=== PATIENT | female | born 1935 | race Caucasian/White ===

== ENCOUNTER 2017-09-21 17:32 | Inpatient (IN) | payer MEDICARE, BC ==
[~2017-09-21] VITALS: Ht 152.4 cm; Wt 56.7 kg
[2017-09-21] MEDS ORDERED: ACETAMINOPHEN325 MG PO (22:05)
[2017-09-21] MEDS ORDERED: PROVENTIL/2.5 MG/3 M INH (22:07)
[2017-09-21] MEDS ORDERED: CLAFORAN IV (22:08)
[2017-09-21] MEDS ORDERED: LIPITOR20 MG PO (22:08)
[2017-09-21] MEDS ORDERED: [UNRECOGNIZED DRUG - OTHER] IV (22:08)
[2017-09-21] MEDS ORDERED: SODIUM CL 0.41000 ML IV (22:09)
[2017-09-21] MEDS ORDERED: SYNTHROID125 MCG PO (22:10)
[2017-09-21] MEDS ORDERED: PEPCID INJ20 MG/2 ML IV (22:10)
[2017-09-21] MEDS ORDERED: TOPROL XL25 MG PO (22:11)
[2017-09-21] MEDS ORDERED: MEPERIDINE HCL50 MG PO (22:11)
[2017-09-21] MEDS ORDERED: FLAGYL 500500 MG/100 IV (22:12)
[2017-09-21] MEDS ORDERED: DULERA 200 MCG8.8 GM INH (22:13)
[2017-09-21] MEDS ORDERED: NALOXONE HC0.4 MG/M2 IV (22:13)
[2017-09-21] MEDS ORDERED: ONDANSETRON4 MG/2 M3 IV (22:14)
[2017-09-21] MEDS ORDERED: PROTONIX I40 MG/VIAL IV (22:15)
[2017-09-21] MEDS ORDERED: SALINE FLUSH10 ML IV (22:16)
[2017-09-21] MEDS ORDERED: LIQUITEARS15 ML EACH EYE (22:16)
[2017-09-21] MEDS ORDERED: EFFEXOR75 MG PO (22:17)
[2017-09-22 00:44] VITALS: BP 144/69
[2017-09-22 01:00] VITALS: BP 144/69; BMI 24.4
[2017-09-22 01:05] LABS: BASOPHILS 0.4 % (0-2); EOSINOPHILS 3.8 % (0-7); HEMATOCRIT 30.5 % (36.0-48.0); HEMOGLOBIN 9.9 g/dL (12-16); IMMATURE GRANULOCYTES 0.1 % (0-5); LYMPHOCYTES 28.9 % (15-50); MCH 31.1 pg (26.0-34.0); MCHC 32.5 g/dL (31.0-37.0); MCV 95.9 fL (80.0-100.0); MONOCYTES 9.7 % (2-11); NEUTROPHILS 57.1 % (40-80); PLATELET COUNT 204 10x3/uL (130-400); RBC 3.18 10x6/uL (4.00-5.40); WBC 7.6 10x3/uL (4.8-10.8)
[2017-09-22 01:19] LABS: ALBUMIN 2.8 g/dL (3.4-5.0); ANION GAP 10.8 mmol/L (8-16); BILIRUBIN - TOTAL 0.4 mg/dL (0.2-1.3); CALCIUM 8.2 mg/dL (8.5-10.1); CARBON DIOXIDE 26.6 mmol/L (21.0-32.0); POTASSIUM - SERUM 3.4 mmol/L (3.5-5.1); PROTEIN - SERUM 5.4 g/dL (6.4-8.2)
[2017-09-22 04:00] VITALS: BP 154/75
[2017-09-22 05:29] LABS: BASOPHILS 0.2 % (0-2); EOSINOPHILS 4.3 % (0-7); HEMATOCRIT 29.4 % (36.0-48.0); HEMOGLOBIN 9.4 g/dL (12-16); LYMPHOCYTES 30.7 % (15-50); MCH 30.7 pg (26.0-34.0); MCV 96.1 fL (80.0-100.0); MEAN PLATELET VOLUME 10.2 fL (7.4-10.4); MONOCYTES 9.3 % (2-11); NEUTROPHILS 55.5 % (40-80); PLATELET COUNT 195 10x3/uL (130-400); RBC 3.06 10x6/uL (4.00-5.40); RDW 14.3 % (11.5-14.5); WBC 6.5 10x3/uL (4.8-10.8)
[2017-09-22 06:13] LABS: ALBUMIN 2.5 g/dL (3.4-5.0); ANION GAP 10.4 mmol/L (8-16); BILIRUBIN - TOTAL 0.36 mg/dL (0.2-1.3); CALCIUM 7.8 mg/dL (8.5-10.1); CARBON DIOXIDE 26.1 mmol/L (21.0-32.0); CREATININE - SERUM 0.9 mg/dL (0.6-1.3); POTASSIUM - SERUM 3.5 mmol/L (3.5-5.1)
[2017-09-22 08:39] VITALS: BP 157/82
[2017-09-22 09:17] LABS: APTT 27.2 SECONDS (22.8-39.4); PROTIME 12.8 SECONDS (11.6-15.0)
[2017-09-22 10:30] VITALS: Ht 152.4 cm; Wt 56.7 kg
[2017-09-22 13:12] VITALS: BP 149/80
[2017-09-22 18:56] LABS: HEMATOCRIT 31.1 % (36.0-48.0)
[2017-09-22 22:21] VITALS: BP 135/64
[2017-09-23 01:10] VITALS: BP 158/68
[2017-09-23 05:03] VITALS: BP 138/68
[2017-09-23 05:32] LABS: BASOPHILS 0.3 % (0-2); EOSINOPHILS 4.4 % (0-7); HEMATOCRIT 32.7 % (36.0-48.0); HEMOGLOBIN 10.4 g/dL (12-16); IMMATURE GRANULOCYTES 0.3 % (0-5); LYMPHOCYTES 30.1 % (15-50); MCH 30.9 pg (26.0-34.0); MCHC 31.8 g/dL (31.0-37.0); MEAN PLATELET VOLUME 9.9 fL (7.4-10.4); MONOCYTES 8.5 % (2-11); NEUTROPHILS 56.4 % (40-80); PLATELET COUNT 212 10x3/uL (130-400); RBC 3.37 10x6/uL (4.00-5.40); RDW 14.4 % (11.5-14.5); WBC 7.9 10x3/uL (4.8-10.8)
[2017-09-23 05:52] LABS: CARBON DIOXIDE 27.3 mmol/L (21.0-32.0); POTASSIUM - SERUM 3.3 mmol/L (3.5-5.1)
[2017-09-23 07:52] VITALS: BP 150/71
[2017-09-23 12:20] VITALS: BP 146/57
[2017-09-23 15:54] VITALS: BP 157/73
[2017-09-23 16:19] LABS: HEMOGLOBIN 9.9 g/dL (12-16)
[2017-09-23 20:31] VITALS: BP 170/76
[2017-09-24 05:42] LABS: BASOPHILS 0.3 % (0-2); EOSINOPHILS 4.8 % (0-7); HEMATOCRIT 30.6 % (36.0-48.0); HEMOGLOBIN 9.7 g/dL (12-16); IMMATURE GRANULOCYTES 0.2 % (0-5); LYMPHOCYTES 22.6 % (15-50); MCH 30.7 pg (26.0-34.0); MCHC 31.7 g/dL (31.0-37.0); MCV 96.8 fL (80.0-100.0); MEAN PLATELET VOLUME 9.9 fL (7.4-10.4); MONOCYTES 9.3 % (2-11); NEUTROPHILS 62.8 % (40-80); PLATELET COUNT 215 10x3/uL (130-400); RBC 3.16 10x6/uL (4.00-5.40); RDW 14.2 % (11.5-14.5); WBC 9.4 10x3/uL (4.8-10.8)
[2017-09-24 06:06] LABS: ALBUMIN 2.7 g/dL (3.4-5.0); BILIRUBIN - TOTAL 0.4 mg/dL (0.2-1.3); CALCIUM 8.1 mg/dL (8.5-10.1); CARBON DIOXIDE 28.6 mmol/L (21.0-32.0); CREATININE - SERUM 0.9 mg/dL (0.6-1.3); POTASSIUM - SERUM 3.6 mmol/L (3.5-5.1); PROTEIN - SERUM 5.4 g/dL (6.4-8.2)
[2017-09-24 06:20] VITALS: BP 149/68
[2017-09-24 12:49] VITALS: BP 170/78
[2017-09-24 15:55] VITALS: BP 189/94
[2017-09-24 20:46] VITALS: BP 171/73
[2017-09-25 01:30] VITALS: BP 151/74
[2017-09-25 04:49] VITALS: BP 118/73
[2017-09-25 06:24] LABS: BASOPHILS 0.2 % (0-2); EOSINOPHILS 2.6 % (0-7); HEMATOCRIT 30.6 % (36.0-48.0); HEMOGLOBIN 9.8 g/dL (12-16); IMMATURE GRANULOCYTES 0.2 % (0-5); LYMPHOCYTES 23.2 % (15-50); MCH 30.7 pg (26.0-34.0); MCV 95.9 fL (80.0-100.0); MONOCYTES 8.3 % (2-11); NEUTROPHILS 65.5 % (40-80); PLATELET COUNT 224 10x3/uL (130-400); RBC 3.19 10x6/uL (4.00-5.40); RDW 14.1 % (11.5-14.5); WBC 9.6 10x3/uL (4.8-10.8)
[2017-09-25 06:45] LABS: ALBUMIN 2.7 g/dL (3.4-5.0); ANION GAP 9.1 mmol/L (8-16); BILIRUBIN - TOTAL 0.3 mg/dL (0.2-1.3); CALCIUM 7.9 mg/dL (8.5-10.1); CARBON DIOXIDE 27.9 mmol/L (21.0-32.0); CREATININE - SERUM 0.9 mg/dL (0.6-1.3); PROTEIN - SERUM 5.4 g/dL (6.4-8.2)
[2017-09-25 08:25] VITALS: BP 153/75
[2017-09-25 10:34] LABS: MAGNESIUM - SERUM 1.5 mg/dL (1.8-2.4); PHOSPHOROUS 3.7 mg/dL (2.5-4.9)
[2017-09-25] MEDS ORDERED: NYSTATIN ORAL SU5 ML PO (11:39)
[2017-09-25] MEDS ORDERED: FLAGYL500 MG PO (11:40)
[2017-09-25] MEDS ORDERED: FLORAJEN3 CAPS460 MG PO (11:41)
[2017-09-25] MEDS ORDERED: PROTONIX40 MG PO (11:41)
[2017-09-25 12:38] VITALS: BP 152/87
== END 2017-09-25 15:17 | disposition home or self-care (01) | DRG 378 ==
LOC: D.M2 17:32 → D.MS 21:54
PROVIDERS: Family Medicine; Internal Medicine Gastroenterology
PROC: 0DD78ZX Extraction of Stomach, Pylorus, Via Natural or Artificial Opening Endoscopic, Diagnostic (ICD-10-PCS; principal; 2017-09-22 14:00)
DX: K92.1 Melena (principal); K57.92 Diverticulitis of intestine, part unspecified, without perforation or abscess without bleeding; D62 Acute posthemorrhagic anemia; B37.81 Candidal esophagitis; K55.9 Vascular disorder of intestine, unspecified; K29.70 Gastritis, unspecified, without bleeding; K44.9 Diaphragmatic hernia without obstruction or gangrene; E11.65 Type 2 diabetes mellitus with hyperglycemia; J44.9 Chronic obstructive pulmonary disease, unspecified; Z87.11 Personal history of peptic ulcer disease; I10 Essential (primary) hypertension

== ENCOUNTER 2019-04-22 08:14 | Inpatient (IN) | payer MEDICARE, BC ==
[~2019-04-22] VITALS: Ht 152.4 cm; Wt 54.0 kg
[~2019-04-22 08:14] MED LIST: ACETAMINOPHEN325 MG PO; CLAFORAN IV; DULERA 200 MCG8.8 GM INH; EFFEXOR75 MG PO; FLAGYL 500500 MG/100 IV; FLAGYL500 MG PO; FLORAJEN3 CAPS460 MG PO; LIPITOR20 MG PO; LIQUITEARS15 ML EACH EYE; MEPERIDINE HCL50 MG PO; NALOXONE HC0.4 MG/M2 IV; NYSTATIN ORAL SU5 ML PO; ONDANSETRON4 MG/2 M3 IV; PEPCID INJ20 MG/2 ML IV; PROTONIX I40 MG/VIAL IV; PROTONIX40 MG PO; PROVENTIL/2.5 MG/3 M INH; SALINE FLUSH10 ML IV; SODIUM CL 0.41000 ML IV; SYNTHROID125 MCG PO; TOPROL XL25 MG PO; [UNRECOGNIZED DRUG - OTHER] IV
[2019-04-22] MEDS ORDERED: ESTRACE 0.5 MG0.5 MG PO (08:21)
[2019-04-22] MEDS ORDERED: CITRACAL + D E1 EACH PO (08:22)
[2019-04-22 08:49] LABS: BASOPHILS 0.2 % (0-2); EOSINOPHILS 1.7 % (0-7); HEMATOCRIT 39.6 % (36.0-48.0); HEMOGLOBIN 13.4 g/dL (12-16); IMMATURE GRANULOCYTES 0.3 % (0-5); LYMPHOCYTES 22.3 % (15-50); MCH 29.9 pg (26.0-34.0); MCHC 33.8 g/dL (31.0-37.0); MCV 88.4 fL (80.0-100.0); MONOCYTES 14.1 % (2-11); NEUTROPHILS 61.4 % (40-80); PLATELET COUNT 196 10x3/uL (130-400); RBC 4.48 10x6/uL (4.00-5.40); RDW 14.3 % (11.5-14.5); WBC 6.5 10x3/uL (4.8-10.8)
[2019-04-22 09:09] LABS: APTT 31.7 SECONDS (22.8-39.4); INR 1.05 (0.85-1.17); PROTIME 13.2 SECONDS (11.6-15.0)
[2019-04-22 09:26] VITALS: BP 120/62
[2019-04-22 09:50] LABS: APPEARANCE CLEAR (CLEAR); BILIRUBIN NEGATIVE (NEGATIVE); COLOR YELLOW (YELLOW); GLUCOSE NEGATIVE (NEGATIVE); KETONE SMALL mg/dL (NEGATIVE); NITRITE NEGATIVE (NEGATIVE); PROTEIN NEGATIVE (NEGATIVE); UROBILINOGEN NORMAL (NORMAL)
[2019-04-22 09:56] LABS: CALC OSMOLALITY 245 mosm/kg (275-300); CALCIUM 8.2 mg/dL (8.5-10.1); CARBON DIOXIDE 23.2 mmol/L (21.0-32.0); CHLORIDE - SERUM 87 mmol/L (98-107); CREATININE - SERUM 0.9 mg/dL (0.6-1.3); SODIUM 123 mmol/L (136-145); UREA NITROGEN 12 mg/dL (7-18); eGFR NON AFRICAN AMERICAN 63 mL/min (90-120)
[2019-04-22 09:58] LABS: GLUCOSE 64 mg/dL (74-106)
[2019-04-22 10:13] LABS: ALBUMIN 2.9 g/dL (3.4-5.0); ALKALINE PHOSPHATASE 95 U/L (46-116); ALT (SGPT) 26 U/L (10-68); BILIRUBIN - TOTAL 0.59 mg/dL (0.2-1.3); CKMB 0.1 U/L (0.0-3.6); CREATINE KINASE 40 UL (21-215); PROTEIN - SERUM 7.5 g/dL (6.4-8.2); TROPONIN-I 0.019 ng/mL (0.000-0.060)
[2019-04-22 11:09] VITALS: BP 121/65
[2019-04-22 15:51] VITALS: BP 164/87
[2019-04-22 19:05] VITALS: BP 168/52; BMI 23.4
[2019-04-22 19:53] VITALS: BP 148/70
[2019-04-23] VITALS: BP 158/79
[2019-04-23 04:00] VITALS: BP 160/79
--- NOTE | 2019-04-23 05:45 | NUR ---
FSBS 46 - PT ALERT & TALKING. GAVE 25 MG D50 IV PUSH. PT SITTING UP IN BED EATING A IGOR CRACKER AND MILK. ORDERED STAT GLUCOSE. LAB TO DRAW.
[2019-04-23 06:50] LABS: CALC OSMOLALITY 267 mosm/kg (275-300); CALCIUM 7.6 mg/dL (8.5-10.1); CHLORIDE - SERUM 100 mmol/L (98-107); CREATININE - SERUM 0.7 mg/dL (0.6-1.3); GLUCOSE 134 mg/dL (74-106); POTASSIUM - SERUM 3.1 mmol/L (3.5-5.1); SODIUM 134 mmol/L (136-145); eGFR NON AFRICAN AMERICAN 84 mL/min (90-120)
[2019-04-23 06:51] LABS: UREA NITROGEN 7 mg/dL (7-18)
--- NOTE | 2019-04-23 06:51 | NUR ---
RECHECK FSBS 107. REMINDED PT TO EAT BREAKFAST WHEN IT ARRIVES. WILL CONTINUE TO MONITOR.
[2019-04-23 06:55] LABS: ALBUMIN 2.6 g/dL (3.4-5.0); ALKALINE PHOSPHATASE 84 U/L (46-116); ALT (SGPT) 23 U/L (10-68); BILIRUBIN - TOTAL 0.42 mg/dL (0.2-1.3); PROTEIN - SERUM 6.9 g/dL (6.4-8.2)
--- NOTE | 2019-04-23 08:00 | NUR ---
PATIENT IN BED WITH IV INTACT. NO COMPLAINTS OR SIGNS OF DISTRESS. ASSISTED PATIENT TO BR AND BACK TO BED. CALL LIGHT WITHIN REACH. BSCDS ON. BED ALARM ON.
[2019-04-23 08:12] VITALS: BP 150/84
--- NOTE | 2019-04-23 11:45 | NUR ---
PATIENT BS 70. NOTIFIED DR. POOLE.
[2019-04-23 13:33] VITALS: BP 154/76
--- NOTE | 2019-04-23 14:50 | NUR ---
PATIENT IN BED WITH EYES CLOSED RESTING QUIETLY. CALL LIGHT WITHIN REACH.
[2019-04-23 16:05] LABS: BASOPHILS 0.2 % (0-2); EOSINOPHILS 2.3 % (0-7); HEMATOCRIT 41.3 % (36.0-48.0); LYMPHOCYTES 21.5 % (15-50); MCH 29.3 pg (26.0-34.0); MCHC 31.5 g/dL (31.0-37.0); MEAN PLATELET VOLUME 12.6 fL (7.4-10.4); MONOCYTES 10.2 % (2-11); NEUTROPHILS 65.8 % (40-80); RBC 4.44 10x6/uL (4.00-5.40); RDW 14.6 % (11.5-14.5)
[2019-04-23 16:06] LABS: PLATELET COUNT 119 10x3/uL (130-400); WBC 4.4 10x3/uL (4.8-10.8)
[2019-04-23 16:23] VITALS: BP 168/91
--- NOTE | 2019-04-23 17:00 | NUR ---
PATIENT BS 66. PATIENT EATING DINNER. DEXTROSE IV GIVEN. LAB ORDERED TO DRAW GLUCOSE AND K+. PATIENT HAS NO COMPLAINTS. STATED FEELS OK. IV INTACT. CALL LIGHT WITHIN REACH.
--- NOTE | 2019-04-23 18:20 | NUR ---
PATIENT IN BED WITH IV INTACT. NO COMPLAINTS OR SIGNS OF DISTRESS. BSCDS ON AND WORKING. CALL LIGHT WITHIN REACH.
[2019-04-23 18:50] LABS: POTASSIUM - SERUM 3.1 mmol/L (3.5-5.1)
[2019-04-23 19:49] VITALS: BP 164/84
[2019-04-24 00:30] VITALS: BP 138/70; BP 150/83
[2019-04-24 04:30] VITALS: BP 179/97
[2019-04-24 06:14] LABS: BASOPHILS 0.2 % (0-2); EOSINOPHILS 3.1 % (0-7); HEMOGLOBIN 11.4 g/dL (12-16); IMMATURE GRANULOCYTES 0.2 % (0-5); LYMPHOCYTES 21.3 % (15-50); MCH 28.9 pg (26.0-34.0); MCHC 31.7 g/dL (31.0-37.0); MCV 91.1 fL (80.0-100.0); MEAN PLATELET VOLUME 11.9 fL (7.4-10.4); MONOCYTES 16.7 % (2-11); NEUTROPHILS 58.5 % (40-80); PLATELET COUNT 104 10x3/uL (130-400); RBC 3.95 10x6/uL (4.00-5.40); RDW 14.5 % (11.5-14.5); WBC 4.5 10x3/uL (4.8-10.8)
--- NOTE | 2019-04-24 06:30 | NUR ---
LAB GLUCOSE 69. GAVE PT JELLO AND RECHECKED FSBS WAS 98. NO OTHER NEEDS. WILL CONTINUE TO MONITOR.
[2019-04-24 06:52] LABS: ALBUMIN 2.5 g/dL (3.4-5.0); ALKALINE PHOSPHATASE 72 U/L (46-116); ALT (SGPT) 19 U/L (10-68); CALCIUM 7.4 mg/dL (8.5-10.1); CARBON DIOXIDE 20.4 mmol/L (21.0-32.0); CHLORIDE - SERUM 105 mmol/L (98-107); CREATININE - SERUM 0.6 mg/dL (0.6-1.3); PROTEIN - SERUM 6.3 g/dL (6.4-8.2); SODIUM 136 mmol/L (136-145); eGFR NON AFRICAN AMERICAN > 90 mL/min (90-120)
[2019-04-24 07:06] LABS: CALC OSMOLALITY 266 mosm/kg (275-300); POTASSIUM - SERUM 3.6 mmol/L (3.5-5.1); UREA NITROGEN 4 mg/dL (7-18)
[2019-04-24 07:07] LABS: GLUCOSE 69 mg/dL (74-106)
[2019-04-24 08:09] VITALS: BP 167/90
--- NOTE | 2019-04-24 08:15 | NUR ---
PATIENT SITTING UP IN BED EATING AT THIS TIME. IV INTACT. NO COMPLAINTS. CALL LIGHT WITHIN REACH.
--- NOTE | 2019-04-24 11:38 | NUR ---
PATIENT AMBULATED WITH PT 24 FEET AND SAT UP IN CHAIR FOR 45 MINUTES.
[2019-04-24 12:28] VITALS: BP 166/82
[2019-04-24 16:54] VITALS: BP 168/90
--- NOTE | 2019-04-24 18:46 | NUR ---
PATIENT IN BED WITH IV INTACT. NO COMPLAINTS OR SIGNS OF DISTRESS. BA ON ON. CALL LIGHT WITHIN REACH. BSCDS ON AND WORKING.
[2019-04-24 19:30] VITALS: BP 144/84
--- NOTE | 2019-04-24 20:35 | NUR ---
LYING QUIELTY WITH NO COMPLAINTS VOICED. NO DISTRESS NOTED. RESP UNLAOBRED. CL IN REACH
[2019-04-25 00:30] VITALS: BP 128/71
[2019-04-25 04:00] VITALS: BP 150/80
--- NOTE | 2019-04-25 04:43 | NUR ---
I have reviewed this patient and I concur with the Shift Assessment completed by the Licensed Practical Nurse today this shift.
[2019-04-25 06:29] LABS: BASOPHILS 0.2 % (0-2); EOSINOPHILS 3.9 % (0-7); HEMATOCRIT 35.5 % (36.0-48.0); HEMOGLOBIN 11.4 g/dL (12-16); IMMATURE GRANULOCYTES 0.2 % (0-5); LYMPHOCYTES 20.1 % (15-50); MCH 29.1 pg (26.0-34.0); MCHC 32.1 g/dL (31.0-37.0); MCV 90.6 fL (80.0-100.0); MEAN PLATELET VOLUME 11.4 fL (7.4-10.4); MONOCYTES 15.1 % (2-11); NEUTROPHILS 60.5 % (40-80); RBC 3.92 10x6/uL (4.00-5.40); RDW 14.5 % (11.5-14.5); WBC 4.6 10x3/uL (4.8-10.8)
[2019-04-25 06:45] LABS: PLATELET COUNT 141 10x3/uL (130-400)
[2019-04-25 06:58] LABS: ALBUMIN 2.2 g/dL (3.4-5.0); ALKALINE PHOSPHATASE 65 U/L (46-116); ALT (SGPT) 16 U/L (10-68); CALC OSMOLALITY 267 mosm/kg (275-300); CALCIUM 7.2 mg/dL (8.5-10.1); CARBON DIOXIDE 22.6 mmol/L (21.0-32.0); CHLORIDE - SERUM 106 mmol/L (98-107); CREATININE - SERUM 0.6 mg/dL (0.6-1.3); GLUCOSE 85 mg/dL (74-106); PROTEIN - SERUM 5.8 g/dL (6.4-8.2); SODIUM 136 mmol/L (136-145); UREA NITROGEN 5 mg/dL (7-18); eGFR NON AFRICAN AMERICAN > 90 mL/min (90-120)
[2019-04-25 07:02] LABS: POTASSIUM - SERUM 2.8 mmol/L (3.5-5.1)
[2019-04-25 08:51] VITALS: BP 101/67
--- NOTE | 2019-04-25 09:00 | NUR ---
ASSESSMENT PER FLOW SHEET. PT IS WITHOUT DISTRESS.MONITOR.FALL PREVENTION IN PLACE.
[2019-04-25 12:30] VITALS: BP 140/83
[2019-04-25 16:21] VITALS: BP 171/97
--- NOTE | 2019-04-25 17:06 | NUR ---
OT NOTE: PT COMPLETED ADL MOB WITH MIN A. PT COMPLETED HYGIENE AND GROOMING TASK WITH MIN A. THANK YOU, AZALIA MORALES
--- NOTE | 2019-04-25 18:35 | NUR ---
REMAINS WITHOUT NEEDS,WITHOUT CHANGE.CONT PLAN OF CARE
[2019-04-25 19:30] VITALS: BP 165/94
--- NOTE | 2019-04-25 20:30 | NUR ---
A&O X 4, NO S/SX OF DISTRESS NOTED. 1L O2 VIA NC IN USE. REPORTS HEADACHE 01/29. CONTINUE PLAN OF CARE.
[2019-04-26] VITALS (7 sets, daily range): BP systolic 127–176; BP diastolic 69–100
--- NOTE | 2019-04-26 03:37 | NUR ---
I have reviewed this patient and I concur with the Shift Assessment completed by the Licensed Practical Nurse today this shift.
[2019-04-26 08:10] LABS: ALBUMIN 2.4 g/dL (3.4-5.0); ALKALINE PHOSPHATASE 65 U/L (46-116); ALT (SGPT) 18 U/L (10-68); BILIRUBIN - TOTAL 0.68 mg/dL (0.2-1.3); CALC OSMOLALITY 270 mosm/kg (275-300); CALCIUM 7.9 mg/dL (8.5-10.1); CHLORIDE - SERUM 107 mmol/L (98-107); CREATININE - SERUM 0.7 mg/dL (0.6-1.3); POTASSIUM - SERUM 3.1 mmol/L (3.5-5.1); PROTEIN - SERUM 6.7 g/dL (6.4-8.2); SODIUM 138 mmol/L (136-145); UREA NITROGEN 5 mg/dL (7-18); eGFR NON AFRICAN AMERICAN 84 mL/min (90-120)
[2019-04-26 08:11] LABS: GLUCOSE 69 mg/dL (74-106)
[2019-04-26 08:13] LABS: BASOPHILS 0.3 % (0-2); EOSINOPHILS 5.4 % (0-7); HEMATOCRIT 33.5 % (36.0-48.0); HEMOGLOBIN 10.7 g/dL (12-16); IMMATURE GRANULOCYTES 0.3 % (0-5); LYMPHOCYTES 24.7 % (15-50); MCH 28.8 pg (26.0-34.0); MCHC 31.9 g/dL (31.0-37.0); MCV 90.3 fL (80.0-100.0); MEAN PLATELET VOLUME 10.8 fL (7.4-10.4); MONOCYTES 13.8 % (2-11); NEUTROPHILS 55.5 % (40-80); PLATELET COUNT 125 10x3/uL (130-400); RBC 3.71 10x6/uL (4.00-5.40); RDW 14.6 % (11.5-14.5); WBC 3.7 10x3/uL (4.8-10.8)
--- NOTE | 2019-04-26 09:00 | NUR ---
ASSESSMENT PER FLOW SHEET. PT IS WITHOUT DISTRESS.MONITOR FOR NEEDS.
--- NOTE | 2019-04-26 12:08 | NUR ---
OT NOTE: PT PERFORMED WELL TODAY. IN ROOM AMBULATION WITH WALKER AND MIN ASSIST ( ALSO ASSIST WITH IV AND 02).. AMB TO TOILET WITH MIN ASSIST; TOILET HYGIENE AND CLOTHING MGMT WITH MIN ASSIST. AMB INTO HALLWAY FOR FUNCTIONAL ENDURANCE..ABLE TO AMB APPROX 78 FT.. PT VERY FATIGUED UPON RETURN TO ROOM. UE/LE EXS WHILE ON EOB. PT DOING BETTER TODAY. AYDE IBANEZ, OTR/L
--- NOTE | 2019-04-26 14:16 | MORECARE ---
CASE MANAGEMENT DISCHARGE SUMMARY PATIENT: SHAYNE GARCIA UNIT: [id number] ADM DATE: 04/22/19 AGE: 83 : 34 SEX: F ROOM/BED: D.2224 AUTHOR: CELINE ALMARAZ PHYSICIAN: REFERRING PHYSICIAN: SUSIE POOLE DO DATE OF SERVICE: 04/26/19 Discharge Plan Patient Name: SHAYNE GARCIA [facility] [facility] 1935 Planned Disposition: Home Anticipated Discharge Date: Discharge Date: Expected LOS: Initial Reviewer: [email or web address] Initial Review Date: 04/26/2019 Generated: 04/26/19 3:15 pm DCPIA - Discharge Planning Initial Assessment Updated by [email or web address]: Melinda Franklin on 04/26/19 2:14 pm * Is the patient Alert and Oriented? Yes * How many steps to enter\exit or inside your home? 2/0 * PCP Dr Javier Horton * Pharmacy [facility] * Preadmission Environment Home with Family * ADLs Partial Dependent * Partial ADLs (Assistance needed) Ambulation Medication Management * Equipment Cane Elevated [place] Seat Grab Bars Nebulizer Oxygen Shower Chair Walker * List name and contact numbers for known caregivers / representatives who currently or will assist patient after discharge: Juan Garcia - spouse - [phone] * Verbal permission to speak to the caregivers and representatives has been obtained from the patient. Yes * Community resources currently utilized Other * Please name any agencies selected above. OP PT at [facility] * Additional services required to return to the preadmission environment? No * Can the patient safely return to the preadmission environment? Yes * Has this patient been hospitalized within the prior 30 days at any hospital? No Patient Name: SHAYNE GARCIA Page [id number] at 1416 All edits/amendments must be made on the electronic document DICTATION DATE: 04/26/191414 MOP HANDLE ASSEMBLER: JANETTE 04/26/19 141 RPT#: [id number] DC DATE: STATUS: ADM IN [facility] [address] [place] [address] END OF REPORT
--- NOTE | 2019-04-26 14:24 | MORECARE ---
CASE MANAGEMENT DISCHARGE SUMMARY PATIENT: SHAYNE GARCIA UNIT: [id number] ADM DATE: 04/22/19 AGE: 83 : 34 SEX: F ROOM/BED: D.2224 AUTHOR: SUNG,DOC PHYSICIAN: REFERRING PHYSICIAN: SUSIE POOLE DO DATE OF SERVICE: 04/26/19 Discharge Plan Patient Name: SHAYNE GARCIA Facility: [facility]:[place] : 1935 Planned Disposition: Home Anticipated Discharge Date: Discharge Date: Expected LOS: Initial Reviewer: [email or web address] Initial Review Date: 04/26/2019 Generated: 04/26/19 3:24 pm Comments DCP- Discharge Planning Updated by [email or web address]: Melinda Franklin on 04/26/19 1:[address] Patient Name: SHAYNE GARCIA Admission Status: ER Accout number: [id number] Admission Date: 04-22-2019 : 1935 Admission Diagnosis:HYPO-OSMOLALITY AND HYPONATREMIA Attending: SUSIE POOLE Current LOS: 4 Anticipated DC Date: Planned Disposition: Home Primary Insurance: MEDICARE A & B Discharge Planning Comments: CM met with patient to complete initial dc planning assessment. CM educated patient on the CM role and verbal consent given by patient to complete assessment. Patient lives at home with her . At discharge patient plans to return and feels this is a safe discharge. CM discussed availability of home health, rehab services, and medical equipment. Patient denied known discharge needs at this time. I informed the doctor has ordered a rehab screen for inpatient rehab and she states she does not want to go to rehab. She states "I feel like if I just go back to physical therapy at [facility] 3 times a week, I'll keep my strength up." CM will continue to follow and will assist as needed with dc plans/needs. Furnace Charging Machine Operator: Melinda Franklin DCPIA - Discharge Planning Initial Assessment Updated by [email or web address]: Melinda Franklin on 04/26/19 2:14 pm * Is the patient Alert and Oriented? Yes * How many steps to enter\\exit or inside your home? 2/0 * PCP Dr Javier Horton * Pharmacy [facility] * Preadmission Environment Home with Family * ADLs Partial Dependent * Partial ADLs (Assistance needed) Ambulation Medication Management * Equipment Cane Elevated [place] Seat Grab Bars Nebulizer Oxygen Shower Chair Walker * List name and contact numbers for known caregivers / representatives who currently or will assist patient after discharge: Juan Garcia - spouse - [phone] * Verbal permission to speak to the caregivers and representatives has been obtained from the patient. Yes * Community resources currently utilized Other * Please name any agencies selected above. OP PT at [facility] in [place] * Additional services required to return to the preadmission environment? No * Can the patient safely return to the preadmission environment? Yes * Has this patient been hospitalized within the prior 30 days at any hospital? No Last DP export: 04/26/19 1:16 p Patient Name: SHAYNE GARCIA Page [phone] at 1424 All edits/amendments must be made on the electronic document DICTATION DATE: 04/26/191423 SUPERVISOR FINISHING DEPARTMENT: JANETTE 04/26/191423 RPT#: [id number] DC DATE: STATUS: ADM IN [facility] [address] [place] [address] END OF REPORT
--- NOTE | 2019-04-26 16:05 | NUR ---
Rehab Note- Acute Inpatient REhab prescreen order received. THe patient is a good inpatient rehab candidiate. Will accept the patient to [facility] Acute Inpatient REhab when medically stable and ready for discharge from the acute hospital. Will follow at this time. Thank you for this referral! Arielle Amezcua RN Clinical Liaison, [facility] Rehab
--- NOTE | 2019-04-26 16:37 | NUR ---
OT NOTE: PT COMPLETED ADL MOB WITH CGA. PT COMPLETED SIT TO STAND WITH MIN A/CGA. PT COMPLETED FACE WASH AND HAND WASH WITH SET UP. THANK YOU, AZALIA MORALES
--- NOTE | 2019-04-26 19:31 | NUR ---
REMAINS WITHOUT NEEDS.CONT PLAN OF CARE
--- NOTE | 2019-04-26 21:20 | NUR ---
ASSISTED UP TO BR TO VOID. INCONT AT TIMES. ADULT BRIEF IN USE. RESP NONLABORED. O2 @ 2L/NC. GAIT IS UNSTEADY. NS @ 50 MLHR INFUSING IN LT FOREARM. BRUISES NOTED TO BUE. NOT WEARING SCDS. TELEMETRY SHOWS SR WITH RATE OF 96. DENIES PAIN. ALERT AND ORIENTED X4. SR ELVATED X2. CL IN REACH. KYLIE ALARM IN USE FOR PT SAFETY.
--- NOTE | 2019-04-26 21:56 | NUR ---
MEDICATED FOR C/O H/A WITH TYLENOL ORDERED. CL IN REACH.
--- NOTE | 2019-04-26 23:55 | NUR ---
ASSISTED UP TO BR TO VOID AND BACK TO BED. KYLIE ALARM ON FOR PT SAFETY. CL IN REACH.
[2019-04-27 01:07] VITALS: BP 129/90
--- NOTE | 2019-04-27 03:51 | NUR ---
MEDICATED WITH TYLENOL FOR C/O H/A. CL IN REACH. NO DISTRESS.
[2019-04-27 05:09] VITALS: BP 150/80
--- NOTE | 2019-04-27 05:30 | NUR ---
FSBS 69. PT GIVEN GLUCOSE GEL PER HYPOGLYCEMIC PROTOCOL. ASYMPTOMATIC OTHERWISE.
--- NOTE | 2019-04-27 06:10 | NUR ---
FSBS RECHECKED AND WAS 95. NO DISTRESS.
[2019-04-27 06:45] LABS: ALBUMIN 2.3 g/dL (3.4-5.0); ALKALINE PHOSPHATASE 66 U/L (46-116); ALT (SGPT) 15 U/L (10-68); BILIRUBIN - TOTAL 0.44 mg/dL (0.2-1.3); CALC OSMOLALITY 265 mosm/kg (275-300); CALCIUM 7.9 mg/dL (8.5-10.1); CARBON DIOXIDE 20.8 mmol/L (21.0-32.0); CHLORIDE - SERUM 105 mmol/L (98-107); CREATININE - SERUM 0.6 mg/dL (0.6-1.3); GLUCOSE 84 mg/dL (74-106); POTASSIUM - SERUM 3.4 mmol/L (3.5-5.1); SODIUM 135 mmol/L (136-145); UREA NITROGEN 5 mg/dL (7-18); eGFR NON AFRICAN AMERICAN > 90 mL/min (90-120)
[2019-04-27 07:36] LABS: HEMATOCRIT 34.1 % (36.0-48.0); HEMOGLOBIN 10.9 g/dL (12-16); MCH 28.8 pg (26.0-34.0); MCV 90.2 fL (80.0-100.0); RBC 3.78 10x6/uL (4.00-5.40); RDW 14.6 % (11.5-14.5)
[2019-04-27 07:43] LABS: WBC 7.4 10x3/uL (4.8-10.8)
[2019-04-27 07:59] VITALS: BP 157/55
[2019-04-27 10:16] LABS: EOSINOPHILS 1 % (0-7); LYMPHOCYTES 9 % (15-50); MONOCYTES 7 % (2-11); NEUTROPHILS 83 % (40-80); PLATELET ESTIMATE NORMAL
[2019-04-27 10:22] LABS: MEAN PLATELET VOLUME 10.67 fL (7.4-10.4)
[2019-04-27 10:23] LABS: PLATELET COUNT 167.2 10x3/uL (130-400)
[2019-04-27 10:24] LABS: PLATELET MORPHOLOGY PLT CLUMPS PRESENT
[2019-04-27 10:52] VITALS: Ht 152.4 cm; Wt 54.0 kg
[2019-04-27 11:37] VITALS: BP 138/88
--- NOTE | 2019-04-27 12:43 | MORECARE ---
CASE MANAGEMENT DISCHARGE SUMMARY PATIENT: SHAYNE GARCIA UNIT: [id number] ADM DATE: 04/22/19 AGE: 83 : 34 SEX: F ROOM/BED: D.2224 AUTHOR: SUNG,DOC PHYSICIAN: REFERRING PHYSICIAN: SUSIE POOLE DO DATE OF SERVICE: 04/27/19 Discharge Plan Patient Name: SHAYNE GARCIA Facility: [facility]:[place] : 1935 Planned Disposition: Home Anticipated Discharge Date: Discharge Date: Expected LOS: Initial Reviewer: [email or web address] Initial Review Date: 04/26/2019 Generated: 04/27/19 1:42 pm Comments DCP- Discharge Planning Updated by [id number]: Melinda Pedrazalori on 04/27/19 11:[address] In agreement to inpatient rehab. She states she lives with her and feels safe to discharge home after rehab. She is having some "rectal bleeding" and would like it addressed before discharging to rehab. I informed Brooklyn Cates APN. Will discharge to inpatient rehab. DCP- Discharge Planning Updated by [email or web address]: Melinda Pedrazalori on 04/26/19 1:[address] Patient Name: SHAYNE GARCIA Admission Status: ER Accout number: [id number] Admission Date: 04-22-2019 : 1935 Admission Diagnosis:HYPO-OSMOLALITY AND HYPONATREMIA Attending: SUSIE POOLE Current LOS: 4 Anticipated DC Date: Planned Disposition: Home Primary Insurance: MEDICARE A & B Discharge Planning Comments: CM met with patient to complete initial dc planning assessment. CM educated patient on the CM role and verbal consent given by patient to complete assessment. Patient lives at home with her . At discharge patient plans to return and feels this is a safe discharge. CM discussed availability of home health, rehab services, and medical equipment. Patient denied known discharge needs at this time. I informed the doctor has ordered a rehab screen for inpatient rehab and she states she does not want to go to rehab. She states "I feel like if I just go back to physical therapy at [facility] 3 times a week, I'll keep my strength up." CM will continue to follow and will assist as needed with dc plans/needs. Picker And Packer: Melinda Franklin DCPIA - Discharge Planning Initial Assessment Updated by [email or web address]: Melinda Franklin on 04/26/19 2:14 pm * Is the patient Alert and Oriented? Yes * How many steps to enter\\exit or inside your home? 2/0 * PCP Dr Javier Horton * Pharmacy [facility] * Preadmission Environment Home with Family * ADLs Partial Dependent * Partial ADLs (Assistance needed) Ambulation Medication Management * Equipment Cane Elevated [place] Seat Grab Bars Nebulizer Oxygen Shower Chair Walker * List name and contact numbers for known caregivers / representatives who currently or will assist patient after discharge: Juan Garcia - [facility] - [phone] * Verbal permission to speak to the caregivers and representatives has been obtained from the patient. Yes * Community resources currently utilized Other * Please name any agencies selected above. OP PT at [facility] in [place] * Additional services required to return to the preadmission environment? No * Can the patient safely return to the preadmission environment? Yes * Has this patient been hospitalized within the prior 30 days at any hospital? No Coverage Notice Reviewer: [id number] - Melinda Franklin Notice Issued Date-Time: 04/27/2019 12:36 Notice Type: IM Discharge Notice Notice Delivered To: Patient Relationship to Patient: Self Patient Flow Coordinator Name: Delivery Method: HAND - Hand Delivered Bettie Days: Prior Verbal Notification: Recipient Understood Notice: Yes Recipient Signature: Yes Med Rec Note Co-signed by Attending: Coverage Notice Comment: IMM explained, signed, given, copy placed in MR Last DP export: 04/26/19 1:24 p Patient Name: SHAYNE GARCIA Page [phone] at 1243 All edits/amendments must be made on the electronic document DICTATION DATE: 04/27/19 1242 VACUUM FURNACE OPERATOR: JANETTE 04/27/19 1242 RPT#: [id number] DC DATE: STATUS: ADM IN [facility] [address] [place] [address] END OF REPORT
--- NOTE | 2019-04-27 14:11 | NUR ---
Rehab Note- Visited with the patient, she is willing to come to [facility] Acute Inpatient Rehab but she has concern and wants it addressed the grossly bloody stools that she has had that started this AM, stating that she has had 3 of them today. Spoke with DEIDRE Lawrence and informed her of the patient's concerns. WIll continue to follow at this time. THank you for this referral! Arielle Amezcua RN Clinical Liaison, [facility] Rehab
[2019-04-27 17:01] VITALS: BP 175/98
[2019-04-27 18:40] LABS: HEMATOCRIT 36.5 % (36.0-48.0); HEMOGLOBIN 11.8 g/dL (12-16)
[2019-04-27 21:00] VITALS: BP 176/99
--- NOTE | 2019-04-27 21:30 | NUR ---
Patient is alert and orented able to voice needs and wants to staff. O2 at 2l via n/c, IV to left FA, with no redness noted or pain reported. with N/S at 50ml/hr.FAll precfaution in place. SCD's on
[2019-04-27 23:18] LABS: APPEARANCE CLEAR (CLEAR); COLOR YELLOW (YELLOW)
[2019-04-27 23:19] LABS: BILIRUBIN NEGATIVE (NEGATIVE); GLUCOSE NEGATIVE (NEGATIVE); KETONE NEGATIVE (NEGATIVE); NITRITE NEGATIVE (NEGATIVE); PROTEIN NEGATIVE (NEGATIVE); SPECIFIC GRAVITY 1.005 (1.005-1.020); UROBILINOGEN NORMAL (NORMAL)
[2019-04-28 04:00] VITALS: BP 140/85
[2019-04-28 06:53] LABS: BASOPHILS 0.1 % (0-2); EOSINOPHILS 2.3 % (0-7); HEMATOCRIT 34.9 % (36.0-48.0); HEMOGLOBIN 11.3 g/dL (12-16); IMMATURE GRANULOCYTES 0.3 % (0-5); LYMPHOCYTES 15.7 % (15-50); MCH 28.9 pg (26.0-34.0); MCHC 32.4 g/dL (31.0-37.0); MCV 89.3 fL (80.0-100.0); MEAN PLATELET VOLUME 11.1 fL (7.4-10.4); MONOCYTES 8.3 % (2-11); NEUTROPHILS 73.3 % (40-80); PLATELET COUNT 145 10x3/uL (130-400); RBC 3.91 10x6/uL (4.00-5.40); RDW 14.7 % (11.5-14.5)
--- NOTE | 2019-04-28 07:25 | NUR ---
IV OUT RESITED 22 TO LEFT AC WITH ATEMPT X2 .
[2019-04-28 07:27] LABS: ALBUMIN 2.3 g/dL (3.4-5.0); ALKALINE PHOSPHATASE 73 U/L (46-116); BILIRUBIN - TOTAL 0.47 mg/dL (0.2-1.3); CALC OSMOLALITY 262 mosm/kg (275-300); CALCIUM 8.4 mg/dL (8.5-10.1); CARBON DIOXIDE 24.4 mmol/L (21.0-32.0); CHLORIDE - SERUM 101 mmol/L (98-107); CREATININE - SERUM 0.7 mg/dL (0.6-1.3); GLUCOSE 91 mg/dL (74-106); POTASSIUM - SERUM 3.6 mmol/L (3.5-5.1); PROTEIN - SERUM 6.8 g/dL (6.4-8.2); SODIUM 133 mmol/L (136-145); UREA NITROGEN 5 mg/dL (7-18); eGFR NON AFRICAN AMERICAN 84 mL/min (90-120)
[2019-04-28 07:33] LABS: ALT (SGPT) 21 U/L (10-68)
--- NOTE | 2019-04-28 08:00 | NUR ---
PATIENT IN BED WITH IV INTACT. NO COMPLAINTS OR SIGNS OF DISTRESS. BSCDS OFF. STATED SHE WANTS TO LEAVE THEM OFF FOR AWHILE. CALL LIGHT WITHIN REACH. BA ON.
--- NOTE | 2019-04-28 08:00 | NUR ---
PATIENT IN BED WITH IV INTACT. NO COMPLAINTS OR SIGNS OF DISTRESS. CALL LIGHT WITHIN REACH.
[2019-04-28 09:22] VITALS: BP 150/96
--- NOTE | 2019-04-28 10:00 | NUR ---
PATIENT SITTING UP IN CHAIR. SALINE LOCKED AT THIS TIME PER ROBERTO. NO COMPLAINTS OR SIGNS OF DISTRESS.
--- NOTE | 2019-04-28 11:55 | NUR ---
PATIENT IN BED WITH IV INTACT. EYES CLOSED RESTING QUIETLY. BSCDS ON AND WORKING. CALL LIGHT WITHIN REACH.
--- NOTE | 2019-04-28 12:00 | NUR ---
PATIENT SITTING UP ON THE SIDE OF THE BED WITH IV INTACT. EATING LUNCH AT THIS TIME. CALL LIGHT WITHIN REACH.
[2019-04-28 12:28] VITALS: BP 144/85
--- NOTE | 2019-04-28 14:07 | NUR ---
HAS HAD THE FLU SHOT FOR THIS YR
--- NOTE | 2019-04-28 15:28 | NUR ---
OT NOTE: PT COMPLETED FACE/HAND HYGIENE WITH SET UP. PT COMPLETED BED MOB AND EOB SITTING WITH SBA. THANK YOU, AZALIA MORALES
--- NOTE | 2019-04-29 08:32 | MORECARE ---
CASE MANAGEMENT DISCHARGE SUMMARY PATIENT: SHAYNE GARCIA UNIT: [id number] ADM DATE: 04/22/19 AGE: 83 : 34 SEX: F ROOM/BED: D.2224 AUTHOR: SUNG,DOC PHYSICIAN: REFERRING PHYSICIAN: SUSIE POOLE DO DATE OF SERVICE: 04/29/19 Discharge Plan Patient Name: SHAYNE GARCIA Facility: [facility]:[place] : 1935 Planned Disposition: Inpatient Rehab Anticipated Discharge Date: Discharge Date: 04/28/2019 Expected LOS: 0 Initial Reviewer: [email or web address] Initial Review Date: 04/26/2019 Generated: 04/29/19 9:32 am Comments DCP- Discharge Planning Updated by [email or web address]: Melinda Noemi on 04/27/19 11:[address] In agreement to inpatient rehab. She states she lives with her and feels safe to discharge home after rehab. She is having some "rectal bleeding" and would like it addressed before discharging to rehab. I informed Brooklyn Cates APN. Will discharge to inpatient rehab. DCP- Discharge Planning Updated by [id number]: Melinda Noemi on 04/26/19 1:[address] Patient Name: SHAYNE GARCIA Admission Status: ER Accout number: [id number] Admission Date: 04-22-2019 : 1935 Admission Diagnosis:HYPO-OSMOLALITY AND HYPONATREMIA Attending: SUSIE POOLE Current LOS: 4 Anticipated DC Date: Planned Disposition: Home Primary Insurance: MEDICARE A & B Discharge Planning Comments: CM met with patient to complete initial dc planning assessment. CM educated patient on the CM role and verbal consent given by patient to complete assessment. Patient lives at home with her . At discharge patient plans to return and feels this is a safe discharge. CM discussed availability of home health, rehab services, and medical equipment. Patient denied known discharge needs at this time. I informed the doctor has ordered a rehab screen for inpatient rehab and she states she does not want to go to rehab. She states "I feel like if I just go back to physical therapy at [facility] 3 times a week, I'll keep my strength up." CM will continue to follow and will assist as needed with dc plans/needs. Insole Cementer: Melinda Franklin DCPIA - Discharge Planning Initial Assessment Updated by [email or web address]: Melinda Franklin on 04/26/19 2:14 pm * Is the patient Alert and Oriented? Yes * How many steps to enter\\exit or inside your home? 2/0 * PCP Dr Javier Horton * Pharmacy [facility] * Preadmission Environment Home with Family * ADLs Partial Dependent * Partial ADLs (Assistance needed) Ambulation Medication Management * Equipment Cane Elevated [place] Seat Grab Bars Nebulizer Oxygen Shower Chair Walker * List name and contact numbers for known caregivers / representatives who currently or will assist patient after discharge: Juan Garcia - [facility] - [phone] * Verbal permission to speak to the caregivers and representatives has been obtained from the patient. Yes * Community resources currently utilized Other * Please name any agencies selected above. OP PT at [facility] in [place] * Additional services required to return to the preadmission environment? No * Can the patient safely return to the preadmission environment? Yes * Has this patient been hospitalized within the prior 30 days at any hospital? No Coverage Notice Reviewer: [id number] - Melinda Franklin Notice Issued Date-Time: 04/27/2019 12:36 Notice Type: IM Discharge Notice Notice Delivered To: Patient Relationship to Patient: Self Residential Air Sealing Technician Name: Delivery Method: HAND - Hand Delivered Bettie Days: Prior Verbal Notification: Recipient Understood Notice: Yes Recipient Signature: Yes Med Rec Note Co-signed by Attending: Coverage Notice Comment: IMM explained, signed, given, copy placed in MR Last DP export: 04/27/19 11:43 a Patient Name: SHAYNE GARCIA Page [id number] at 0832 All edits/amendments must be made on the electronic document DICTATION DATE: 04/29/19831 MOTORS ASSEMBLER: JANETTE 04/29/19831 RPT#: [id number] DC DATE:04/28/19 STATUS: DIS IN [facility] [address] [place] [address] END OF REPORT
== END 2019-04-28 15:15 | DRG 640 ==
LOC: D.ER 08:14 → D.MS 11:09
PROVIDERS: Family Medicine; Internal Medicine Nephrology; ADMIT Family Medicine; ATTEND Family Medicine
DX: E87.1 Hypo-osmolality and hyponatremia (principal); G93.41 Metabolic encephalopathy; J96.21 Acute and chronic respiratory failure with hypoxia; I10 Essential (primary) hypertension; J44.9 Chronic obstructive pulmonary disease, unspecified; M54.9 Dorsalgia, unspecified; M19.90 Unspecified osteoarthritis, unspecified site; M32.9 Systemic lupus erythematosus, unspecified; R55 Syncope and collapse; G72.9 Myopathy, unspecified; R53.1 Weakness; R11.0 Nausea; E86.0 Dehydration; E11.65 Type 2 diabetes mellitus with hyperglycemia; Z91.81 History of falling; I20.9 Angina pectoris, unspecified; R00.0 Tachycardia, unspecified; D69.6 Thrombocytopenia, unspecified

== ENCOUNTER 2019-04-28 14:32 | Inpatient (IN) | payer MEDICARE, BC ==
[~2019-04-28] VITALS: Ht 152.4 cm; Wt 54.0 kg
[~2019-04-28 14:32] MED LIST changes: +CITRACAL + D E1 EACH PO; +ESTRACE 0.5 MG0.5 MG PO
[2019-04-28 19:23] VITALS: BMI 23.2
[2019-04-28 20:00] VITALS: BP 143/81
--- NOTE | 2019-04-28 20:16 | NUR ---
AWAKE AND ALERT. RESTING IN BED. RESPIRATIONS UNLABORED. IN PROCESS OF ADMISSION ASSESSMENT PER DAY SHIFT NURSE. NO ACUTE DISTRESS NOTED. LEFT ARM SALINE LOCK IN PLACE. CALL LIGHT IN REACH.
[2019-04-28 21:12] VITALS: BP 143/81
--- NOTE | 2019-04-29 02:09 | NUR ---
SLEEPING IN BED WITH RESPIRATIONS ULABORED. NO DISTRESS NOTED. CALL LIGHT IN REACH.
--- NOTE | 2019-04-29 05:37 | NUR ---
QUIET HOURS. NO ACUTE CHANGES IN CONDITION THIS SHIFT. RESTING IN BED WITH NO DISTRESS NOTED. CALL LIGHT IN REACH.
[2019-04-29 08:00] VITALS: BP 127/76
--- NOTE | 2019-04-29 08:00 | NUR ---
PT RESTING IN BED WITH EYES OPEN CALL LIGHT IN REACH NO PROBLEMS WILL MONITER
[2019-04-29 14:11] VITALS: Ht 152.4 cm; Wt 54.0 kg
--- NOTE | 2019-04-29 16:30 | NUR ---
PATIENT ADMITTED TO REHAB FROM ACUTE FLOOR. DR. KATIE GRIMALDO IS PATIENT PCP, DME AT HOME IS CANE, NEBULIZER, O2, WALKER, SHOWER CHAIR. DISCHARGE PLANS ARE FOR PATIENT TO RETURN HOME WITH FAMILY. WILL CONTINUE TO FOLLOW WITH PATIENT
[2019-04-29 18:30] VITALS: BP 123/73
--- NOTE | 2019-04-29 19:10 | NUR ---
BEDSIDE REPORT COMPLETE. PT SITTING UP IN BED WATCHING TV. DENIES ANY NEEDS OR PAIN. RR EVEN AND UNLABORED. CONTINUES ON 2L VIA NC. VS STABLE. SHIFT ASSESSMENT COMPLETE. CL IN REACH. FALL PRECAUTIONS IN PLACE. WILL CONTINUE TO MONITOR
--- NOTE | 2019-04-30 00:53 | NUR ---
QUIET HOURS. PT LYING IN BED ON RIGHT SIDE EYES CLOSED RESTING QUIETLY. RR EVEN AND UNLABORED. CL IN REACH
--- NOTE | 2019-04-30 03:54 | NUR ---
PT LYING IN BED EYES CLOSED RESTING. RR EVEN AND UNLABORED. CL IN REACH
[2019-04-30 08:00] VITALS: BP 117/62
--- NOTE | 2019-04-30 08:04 | NUR ---
ALERT AND ORIENTED. EATING BREAKFAST. NO C/O PAIN RESP EVEN AND UNLABORED. CL IN REACH.
--- NOTE | 2019-04-30 11:18 | NUR ---
PARTICIPATING IN THERAPY AT THIS TIME. NO C/O PAIN.
--- NOTE | 2019-04-30 16:01 | NUR ---
REFUSED SHOWER. STATED HAD YESTERDAY. DID NOT WANT TODAY.
--- NOTE | 2019-04-30 16:03 | NUR ---
NO CHANGE IN ASSESSMENT. RESTING WO DISTRESS. CL IN REACH.
[2019-04-30 18:50] VITALS: BP 144/84
--- NOTE | 2019-04-30 18:50 | NUR ---
BEDSIDE REPORT COMPLETE. PT LYING IN BED WATCHING TV. DENIES ANY NEEDS OR PAIN. ALERT AND ORIENTED X4. NO SIGNS OF ACUTE DISTRESS NOTED. VS STABLE. SHIFT ASSESSMENT COMPLETE. CL IN REACH. FALL PRECAUTIONS IN PLACE. WILL CONTINUE TO MONITOR
--- NOTE | 2019-04-30 22:15 | NUR ---
ASSISTED PT TO RESTROOM AND BACK TO BED WITH SBA. NO SIGNS OF ACUTE DISTRESS NOTED. CL IN REACH
--- NOTE | 2019-05-01 01:28 | NUR ---
QUIET HOURS. PT LYING IN BED SUPINE EYES CLOSED RESTING QUIETLY. RR EVEN AND UNLABORED. CL IN REACH.
--- NOTE | 2019-05-01 04:39 | NUR ---
PT LYING IN BED EYES CLOSED RESTING QUIETLY. RR EVEN AND UNLABORED. CL IN REACH
--- NOTE | 2019-05-01 05:21 | NUR ---
ASSISTED PT TO RESTROOM AND BACK TO BED WITH SBA ASSIST. CL IN REACH
--- NOTE | 2019-05-01 07:11 | NUR ---
ALERT AND ORIENTED. NO DISTRESS NOTED. RESP EVEN AND UNLABORED. CL IN REACH.
[2019-05-01 09:19] VITALS: BP 102/52
--- NOTE | 2019-05-01 09:21 | NUR ---
SHOWER GIVEN PER NURSING.
--- NOTE | 2019-05-01 10:50 | NUR ---
RESTING IN BED AFTER SHOWER THIS AM. NO C/O PAIN AT THIS TIME. CL IN REACH.
--- NOTE | 2019-05-01 16:51 | NUR ---
NO CHANGE IN ASSESSMENT. SITTING IN WC WAITING FOR DINNER. NO C/O PAIN. CL IN REACH.
[2019-05-01 19:00] VITALS: BP 119/72
--- NOTE | 2019-05-01 19:00 | NUR ---
BEDSIDE REPORT COMPLETE. PT LYING IN BED WATCHING TV. DENIES ANY NEEDS OR PAIN. RR EVEN AND UNLABORED. VS STABLE. SHIFT ASSESSMENT COMPLETE. CL IN REACH. FALL PRECAUTIONS IN PLACE. WILL CONTINUE TO MONITOR
--- NOTE | 2019-05-01 23:43 | NUR ---
QUIET HOURS. PT LYING IN BED EYES CLOSED RESTING QUIETLY. RR EVEN AND UNLABORED. CL IN REACH
--- NOTE | 2019-05-02 03:38 | NUR ---
PT LYING IN BED EYES CLOSED RESTING QUIETLY. RR EVEN AND UNLABORED. CL IN REACH
--- NOTE | 2019-05-02 05:39 | NUR ---
PT LYING IN BED EYES CLOSED RESTING. NO SIGNS OF ACUTE DISTRESS NOTED. CL IN REACH
[2019-05-02 05:47] LABS: BASOPHILS 0.4 % (0-2); EOSINOPHILS 5.4 % (0-7); HEMATOCRIT 34.4 % (36.0-48.0); HEMOGLOBIN 11.4 g/dL (12-16); MCH 29.5 pg (26.0-34.0); MCHC 33.1 g/dL (31.0-37.0); MCV 88.9 fL (80.0-100.0); MEAN PLATELET VOLUME 11.9 fL (7.4-10.4); MONOCYTES 13.7 % (2-11); NEUTROPHILS 54.5 % (40-80); PLATELET COUNT 168 10x3/uL (130-400); RBC 3.87 10x6/uL (4.00-5.40); RDW 14.4 % (11.5-14.5)
[2019-05-02 06:09] LABS: ANION GAP 8.9 mmol/L (8-16); CALCIUM 8.6 mg/dL (8.5-10.1); CARBON DIOXIDE 27.1 mmol/L (21.0-32.0); CREATININE - SERUM 0.9 mg/dL (0.6-1.3)
--- NOTE | 2019-05-02 06:31 | NUR ---
REVIEWED AM LAB GLUCOSE 66 GAVE PT 4 OZ ORANGE JUICE.
[2019-05-02 07:54] VITALS: BP 117/67
--- NOTE | 2019-05-02 08:15 | NUR ---
PT RESTING IN BED WITH EYES OPEN CALL LIGHT IN REACH NO PROBLEMS WILL MONITER
--- NOTE | 2019-05-02 10:01 | RHP ---
PATIENT: SHAYNE HAMEED MEDICAL RECORD: [id number] ACCOUNT: [id number] LOCATION:[id number] : 34 ADMISSION DATE: 04/28/19 REHABILITATION HISTORY AND PHYSICAL EXAMINATION POST ADMISSION PHYSICIAN EXAMINATION POST ADMISSION PHYSICAL EXAM AND HISTORY AND PHYSICAL DATE OF ADMISSION: 04/28/2019 ADMITTING DIAGNOSIS: Acute metabolic encephalopathy. HISTORY OF PRESENT ILLNESS: The patient is an 83-year-old female patient, who sees Dr. Horton, who presented secondary to stroke-like symptoms and being out of breath, nauseated, having profound weakness. The patient apparently had had multiple falls. Her symptoms apparently started about a week prior to admit on April 22. She had been having a generalized weakness, but it progressively worsened. Got a history of diabetes, hypertension, angina, COPD, asthma, O2, tachycardia, lupus, arthritis, and chronic back pain. The patient has been receiving PT and OT during her acute hospital stay. She has had some bleeding from her bowels a few times and they have been concerned about that. Her H&H remained about the same. She is slowly progressing with therapy. She is currently on telemetry. Has some tachycardia at times. Using supplemental O2. She is on electrolyte protocol. She is having her blood sugars followed closely since they have been somewhat erratic. She has got deconditioning, weakness, debility, impaired mobility, gait disturbance, high fall risk, and self-care deficits. These are all barriers to her discharge home. She lives at home with her and was independent with her ADLs and mobility prior to this using a rolling walker. She is currently set up for mod assist for ADLs, mod assist for mobility. She and her family would like for her to return home, being less of a fall risk after having multiple falls prior to presenting. Comorbidities include electrolyte abnormalities, chronic respiratory failure, syncope, near collapse, myopathy, generalized weakness, nausea and vomiting, dehydration, diabetes, hyperglycemia, hypertension, COPD, tachycardia, lupus, arthritis, chronic lumbago, acute metabolic encephalopathy, and thrombocytopenia. PAST MEDICAL HISTORY: Significant for vertigo, lupus, diabetes, hypertension, angina, asthma, COPD, arthritis, chronic lumbago, compression fracture, multiple falls. PAST SURGICAL HISTORY: Includes hysterectomy, laminectomy, right shoulder surgery and repair, left knee scope and repair, and surgery on her foot. ALLERGIES: IODINE, QUINOLONE, CIPRO, LEVAQUIN, NAPROXEN, FLOXIN, PENICILLIN, CODEINE, AND AVELOX. CURRENT MEDICATIONS: Include Floranex 460 mg daily, metoprolol 25 mg daily, estradiol 0.5 mg daily, calcium carbonate 500 mg daily, atorvastatin 20 mg daily, Effexor 75 mg b.i.d. with meals, and acetaminophen 650 every 6 hours p.r.n. HABITS: No alcohol or tobacco use. FAMILY HISTORY: Noncontributory. HISTORY AND PHYSICAL [id number] SHAYNE HAMEED SOCIAL HISTORY: The patient hopes to return back home with family members to get back to her prior level of functioning. REVIEW OF SYSTEMS: GENERAL: Does complain of weakness and fatigue. HEENT: Denies cold, cough, or congestion. CARDIOVASCULAR: Denies chest pain. PHYSICAL EXAMINATION: VITAL SIGNS: Stable. She does have some tachycardia with rates being above 102, but limited to 115. Her blood pressure seems stable. Her pulse ox is 100%. GENERAL: A thin female, in no acute distress upon exam. HEENT: Normocephalic and atraumatic. Mucosa moist. NECK: Supple. No lymphadenopathy. LUNGS: Clear at this time with no wheeze, rhonchi or rales. HEART: Regular rate and rhythm. She is tachycardic. Does have a holosystolic murmur. ABDOMEN: Soft, benign, and nondistended. Positive bowel sounds times 4. EXTREMITIES: No clubbing, cyanosis or edema. NEUROLOGIC: She does have some slow mentation and proximal muscle weakness. LABORATORY DATA: White count is 8000, H&H of 11 and 34, and platelet count is noted to be 145. Sodium 133, potassium 3.6, BUN and creatinine of 5 and 0.7, blood sugars 91. UA is essentially negative. Her INR is good. ASSESSMENT: This is an 83-year-old female patient admitted to the rehab with a working diagnosis of metabolic encephalopathy. The patient has potential to make improvement. We will institute the following multidisciplinary therapies including, but not limited to, physical, occupational, respiratory, speech, nutritional services, prosthetics, and orthotics. Given her complex medical condition and risk for more complications, rehabilitation services cannot be provided at a lower level of care such as a skilled nurse facility. PLAN: 1. Admit to [facility] for an inpatient therapy to include the following disciplines; A. Physical therapy to improve gait, all transfer skills, and bed mobility to modified independent level. B. Occupational therapy to modified independent level. C. Case management to assist with discharge planning and placement options. D. Nutrition to assist with nutritional needs. E. Rehabilitation nursing to assist in monitoring the patient's underlying medical conditions and to assist with any type of bowel or bladder management. 2. The patient's current medications and medical care will be continued. 3. The patient will be placed on standard fall precautions. 4. The patient's estimated length of stay is approximately 7-10 days. 5. We will watch her electrolytes closely and replace as needed. We will continue to follow her mentation closely. We will work on her balance and her gait, and we will return home hopefully with family members. TRANSINT:[id number] Voice Confirmation ID: [id number] DOCUMENT ID: [id number] LAURIE notes whether there has been none or any medical/functional HISTORY AND PHYSICAL [id number] SHAYNE HAMEED change since admission: - No change since pre-admission screen. LAURIE attests patient continues to be appropriate for IRF: - Continues to be appropriate. DANIEL MESSINA MD at 1001 CC: [id number] DICTATION DATE: 04/29/19814 [employer] SUPERVISOR: 04/29/19 0856 ADM IN [place] [id number] [place] [address]
--- NOTE | 2019-05-02 13:18 | NUR ---
Nutrition Follow-up: Diet: Diabetic [facility] Soft, thin liquid PO intake: ~58% x last 9 meals recorded; Reports poor appetite. 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 She admits to nausea and pain causing her poor appetite. She wants Glucerna with meals. Last BM: 05/01/19. Wt: 119# (04/29/19) Labs noted: Glu 66. Meds reviewed. Noted stage II PU to buttocks per recent nursing skin assessment. Continue current diet. Will add Glucerna TID. RD Following.
--- NOTE | 2019-05-02 18:43 | NUR ---
PT RESTING IN BED WITH EYES OPEN CALL LIGHT IN REACH NO PROBLEMS WILL MONITER
--- NOTE | 2019-05-02 18:45 | NUR ---
BEDSIDE REPORT COMPLETE. PT LYING IN BED AWAKE AND ALERT. ASSISTED TO RESTROOM AND BACK TO BED WITH SBA. DENIES ANY NEEDS. C/O MILD BACK DISCOMFORT. REQUESTS TYLENOL WILL ADMININSTER. VS STABLE. SHIFT ASSESSMENT COMPLETE. CL IN REACH. FALL PRECAUTIONS IN PLACE. WILL CONTINUE TO MONITOR
[2019-05-02 21:12] VITALS: BP 139/88
--- NOTE | 2019-05-02 23:09 | NUR ---
PT LYING IN BED ON RIGHT SIDE EYES CLOSED RESTING QUIETLY. RR EVEN AND UNLABORED. CL IN REACH
--- NOTE | 2019-05-03 03:31 | NUR ---
PT LYING IN BED EYES CLOSED RESTING QUIETLY. RR EVEN AND UNLABORED. CL IN REACH
--- NOTE | 2019-05-03 06:34 | NUR ---
PT LYING IN BED SUPINE EYES CLOSED RESTING. RR EVEN AND UNLABORED. CL IN REACH
--- NOTE | 2019-05-03 08:00 | NUR ---
PT RESTING IN BED WITH EYES OPEN CALL LIGHT IN REACH NO PROBLEMS WILL MONITER
[2019-05-03 08:27] VITALS: BP 142/66
--- NOTE | 2019-05-03 11:33 | NUR ---
I have reviewed this patient and I concur with the Shift Assessment completed by the Licensed Practical Nurse today this shift.
--- NOTE | 2019-05-03 15:43 | NUR ---
PT RESTING IN BED WITH EYES OPEN CALL LIGHT IN REACH NO PROBLEMS WILL MONITER
--- NOTE | 2019-05-03 17:24 | NUR ---
PT RESTING IN BED WITH EYES OPEN CALL LIGHT IN REACH WILL MONITER
--- NOTE | 2019-05-03 19:30 | NUR ---
AWAKE AND ALERT. RESTING IN BED WITH RESPIRATIONS UNALBORED. ASSISTED TO BATHROOM AND BACK TO BED. NO DISTRESS NOTED. CALL LIGHT IN REACH.
[2019-05-03 21:36] VITALS: BP 148/82
--- NOTE | 2019-05-04 00:15 | NUR ---
SLEEPING WITH RESPIRATIONS UNLABORED. NO DISTRESS NOTED. CALL LIGHT IN REACH.
--- NOTE | 2019-05-04 03:28 | NUR ---
ASSISTED TO BATHROOM AND BACK TO BED. NO DISTRESS NOTED. CALL LIGHT IN REACH.
--- NOTE | 2019-05-04 05:08 | NUR ---
QUIET HOURS. NO ACUTE CHANGES IN CONDITION. NO DISTRESS NOTED. CALL LIGHT IN REACH.
[2019-05-04 06:08] LABS: BASOPHILS 0.4 % (0-2); EOSINOPHILS 7.2 % (0-7); HEMOGLOBIN 11.5 g/dL (12-16); IMMATURE GRANULOCYTES 0.2 % (0-5); LYMPHOCYTES 31.3 % (15-50); MCH 28.8 pg (26.0-34.0); MCHC 31.9 g/dL (31.0-37.0); MEAN PLATELET VOLUME 11.2 fL (7.4-10.4); MONOCYTES 11.5 % (2-11); NEUTROPHILS 49.4 % (40-80); PLATELET COUNT 166 10x3/uL (130-400); RDW 14.5 % (11.5-14.5); WBC 4.7 10x3/uL (4.8-10.8)
[2019-05-04 06:17] LABS: ANION GAP 10.2 mmol/L (8-16); CARBON DIOXIDE 26.9 mmol/L (21.0-32.0); CREATININE - SERUM 0.9 mg/dL (0.6-1.3); POTASSIUM - SERUM 4.1 mmol/L (3.5-5.1)
[2019-05-04 08:34] VITALS: BP 153/87
--- NOTE | 2019-05-04 09:56 | NUR ---
PARTICIPATING IN THERAPY THIS AM. NO C/O PAIN. RESTING IN ROOM AT THIS TIME. CL IN REACH.
--- NOTE | 2019-05-04 14:21 | NUR ---
FAMILY AT BS. NO DISTRESS NOTED.
--- NOTE | 2019-05-04 16:14 | NUR ---
NO CHANGE IN ASSESSMENT. ST IN ROOM. PAIN MED GIVEN. CL IN REACH.
--- NOTE | 2019-05-04 16:19 | NUR ---
NO CHANGE IN ASSESSMENT. NO C/O PAIN. CL IN ROOM. RESTING AT THIS TIME.
[2019-05-04 19:00] VITALS: BP 165/86
--- NOTE | 2019-05-04 19:00 | NUR ---
BEDSIDE REPORT COMPLETE. PT SITTING UP IN BED WATCHING TV. ALERT AND ORIENTED X4. DENIES ANY NEEDS OR PAIN. RR EVEN AND UNLABORED. VS STABLE. SHIFT ASSESSMENT COMPLETE. CL IN REACH. FALL PRECAUTIONS IN PLACE. WILL CONTINUE TO MONITOR
--- NOTE | 2019-05-04 23:24 | NUR ---
QUIET HOURS. PT LYING IN BED ON LEFT SIDE EYES CLOSED RESTING COMFORTABLY. RR EVEN AND UNLABORED. CL IN REACH. BED ALARM ON
--- NOTE | 2019-05-05 02:26 | NUR ---
PT LYING IN BED EYES CLOSED RESTING QUIETLY. RR EVEN AND UNLABORED. CL IN REACH. BED ALARM ON
--- NOTE | 2019-05-05 06:21 | NUR ---
PT LYING IN BED AWAKE AND ALERT. DENIES ANY NEEDS OR PAIN. RR EVEN AND UNLABORED. CL IN REACH. BED ALARM ON
[2019-05-05 08:00] VITALS: BP 136/78
--- NOTE | 2019-05-05 08:15 | NUR ---
PT RESTING IN BED WITH EYES OPEN CALL LIGHT IN REACH NO PROBLEMS WILL MONITER
--- NOTE | 2019-05-05 18:00 | NUR ---
I have reviewed this patient and I concur with the Shift Assessment completed by the Licensed Practical Nurse today this shift.
--- NOTE | 2019-05-05 18:10 | NUR ---
PT RESTING IN BED WITH EYES OPEN CALL LIGHT IN REACH WILL MONITER
--- NOTE | 2019-05-05 19:20 | NUR ---
BEDSIDE REPORT COMPLETE. PT LYING IN BED EYES CLOSED RESTING COMFORTABLY. NO SIGNS OF ACUTE DISTRESS NOTED. VS STABLE. SHIFT ASSESSMENT COMPLETE. CL IN REACH. BED ALARM ON. WILL CONTINUE TO MONITOR
[2019-05-05 20:34] VITALS: BP 103/56
--- NOTE | 2019-05-06 00:39 | NUR ---
QUIET HOURS. PT LYING IN BED ON LEFT SIDE EYES CLOSED RESTING COMFORTABLY. RR EVEN AND UNLABORED. CL IN REACH. BED ALARM ON.
--- NOTE | 2019-05-06 03:56 | NUR ---
[employer] SIGN CARPENTER ASSISTED PT TO RESTROOM AND BACK TO BED WITH SBA. NO SIGNS OF ACUTE DISTRESS NOTED. CL IN REACH
--- NOTE | 2019-05-06 05:45 | NUR ---
ASSISTED PT TO BATHROOM AND BACK TO BED WITH SBA. DENIES ANY NEEDS OR PAIN. NO SIGNS OF ACUTE DISTRESS NOTED. CL IN REACH
[2019-05-06 07:32] VITALS: BP 135/77
[2019-05-06 07:48] LABS: BASOPHILS 0.6 % (0-2); EOSINOPHILS 5.3 % (0-7); HEMATOCRIT 37.7 % (36.0-48.0); LYMPHOCYTES 34.3 % (15-50); MCH 28.6 pg (26.0-34.0); MCHC 31.8 g/dL (31.0-37.0); MCV 89.8 fL (80.0-100.0); MEAN PLATELET VOLUME 11.7 fL (7.4-10.4); MONOCYTES 11.7 % (2-11); NEUTROPHILS 48.1 % (40-80); RDW 14.7 % (11.5-14.5); WBC 3.6 10x3/uL (4.8-10.8)
[2019-05-06 08:00] LABS: PLATELET COUNT 131 10x3/uL (130-400)
--- NOTE | 2019-05-06 08:00 | NUR ---
PATIENT IS ALERT/ORIENT. CALL LIGHT WITHIN REACH. VOICES NO NEEDS AT THIS TIME. PLAN TO DISCHARGE HOME TODAY
[2019-05-06 08:12] LABS: ANION GAP 11.3 mmol/L (8-16); CALCIUM 8.5 mg/dL (8.5-10.1); CARBON DIOXIDE 25.2 mmol/L (21.0-32.0); CREATININE - SERUM 0.8 mg/dL (0.6-1.3); POTASSIUM - SERUM 4.5 mmol/L (3.5-5.1)
--- NOTE | 2019-05-06 09:41 | NUR ---
DR Opal MESSINA INTO SEE PATIENT. NEW ORDERS FOR DISCHARGE TO HOME RECEIVED
--- NOTE | 2019-05-06 10:01 | NUR ---
patient discharging home today with family. a written script for out patient thereapy given. no new dme needed at this time. dr. beltran artis/abby waters 05/11/19 @ 1:15. patient choice form and [facility] forms signed, copy given to patient( handout given ) and filed in chart. discharge instructions faxed to pcp and reviewed with patient and spouse per nurse.
--- NOTE | 2019-05-06 11:25 | NUR ---
DISCHARGE INSTRUCTIONS GONE OVER WITH PATIENT AND PATIENTS . DISCHARGE MEDICATIONS CALLED INTO [facility] ON [address]. PATIENT HELPED OUT TO CARE BY STAFF
== END 2019-05-06 11:28 | disposition home or self-care (01) | DRG 70 ==
LOC: D.REHAB 14:32
PROVIDERS: ADMIT Emergency Medicine; ATTEND Emergency Medicine
DX: G93.41 Metabolic encephalopathy (principal); J96.21 Acute and chronic respiratory failure with hypoxia; E87.1 Hypo-osmolality and hyponatremia; E87.8 Other disorders of electrolyte and fluid balance, not elsewhere classified; R55 Syncope and collapse; G72.9 Myopathy, unspecified; R53.1 Weakness; R11.2 Nausea with vomiting, unspecified; E86.0 Dehydration; E11.65 Type 2 diabetes mellitus with hyperglycemia; J44.9 Chronic obstructive pulmonary disease, unspecified; I10 Essential (primary) hypertension; R00.0 Tachycardia, unspecified; M32.9 Systemic lupus erythematosus, unspecified; M19.90 Unspecified osteoarthritis, unspecified site; I20.9 Angina pectoris, unspecified; D69.6 Thrombocytopenia, unspecified

== ENCOUNTER 2020-02-12 08:50 | Emergency (ER) | payer MEDICARE, BC ==
[~2020-02-12] VITALS: Ht 152.4 cm; Wt 50.0 kg
[2020-02-12 08:51] VITALS: Ht 152.4 cm; Wt 50.0 kg
[2020-02-12] MEDS ORDERED: TIROSINT88 MCG PO (08:53)
[2020-02-12] MEDS ORDERED: MOBIC7.5 MG (08:54)
[2020-02-12] MEDS ORDERED: MEPERIDINE HCL50 MG (08:54)
[2020-02-12 09:43] LABS: BASOPHILS 0.8 % (0-2); EOSINOPHILS 5.2 % (0-7); HEMATOCRIT 35.4 % (36.0-48.0); HEMOGLOBIN 11.5 g/dL (12-16); LYMPHOCYTES 39.1 % (15-50); MCH 30.3 pg (26.0-34.0); MCHC 32.5 g/dL (31.0-37.0); MCV 93.4 fL (80.0-100.0); MEAN PLATELET VOLUME 9.5 fL (7.4-10.4); MONOCYTES 10.7 % (2-11); NEUTROPHILS 44.2 % (40-80); PLATELET COUNT 145 10x3/uL (130-400); RBC 3.79 10x6/uL (4.00-5.40); RDW 14.4 % (11.5-14.5); WBC 3.8 10x3/uL (4.8-10.8)
[2020-02-12 09:51] LABS: CALCIUM 8.5 mg/dL (8.5-10.1); CARBON DIOXIDE 25.8 mmol/L (21.0-32.0); CREATININE - SERUM 1.3 mg/dL (0.6-1.3); POTASSIUM - SERUM 3.8 mmol/L (3.5-5.1)
[2020-02-12 09:59] LABS: ALBUMIN 2.9 g/dL (3.4-5.0); BILIRUBIN - TOTAL 0.45 mg/dL (0.2-1.3); PROTEIN - SERUM 8.1 g/dL (6.4-8.2)
[2020-02-12 11:25] LABS: BILIRUBIN NEGATIVE (NEGATIVE); GLUCOSE NEGATIVE (NEGATIVE); KETONE NEGATIVE (NEGATIVE); NITRITE NEGATIVE (NEGATIVE); UROBILINOGEN NORMAL (NORMAL)
[2020-02-12] MEDS ORDERED: FLORASTOR250 MG PO (11:27)
[2020-02-12] MEDS ORDERED: CLEOCIN HCL300 MG PO (11:27)
[2020-02-12 11:52] VITALS: BP 128/72
== END 2020-02-12 11:55 | disposition home or self-care (01) ==
LOC: D.ER 08:50
PROVIDERS: Family Medicine
DX: S01.01XA Laceration without foreign body of scalp, initial encounter (principal); S01.81XA Laceration without foreign body of other part of head, initial encounter; W01.0XXA Fall on same level from slipping, tripping and stumbling without subsequent striking against object, initial encounter; Y92.009 Unspecified place in unspecified non-institutional (private) residence as the place of occurrence of the external cause; M25.522 Pain in left elbow; E11.9 Type 2 diabetes mellitus without complications; I20.9 Angina pectoris, unspecified; J44.9 Chronic obstructive pulmonary disease, unspecified; J45.909 Unspecified asthma, uncomplicated; M54.9 Dorsalgia, unspecified